=== PATIENT | male | born 1965 | race Caucasian/White ===

== ENCOUNTER 2025-03-07 11:03 | Day surgery (SDC) | payer OTHER ==
[~2025-03-07] VITALS: Ht 182.9 cm; Wt 82.7 kg
[~2025-03-07 11:03] MED LIST: IMIP25
[2025-03-07] MEDS ORDERED: IMITREX100 MG (11:18)
[2025-03-07 11:34] VITALS: BP 125/84
--- NOTE | 2025-03-07 13:29 | NUR ---
03/07/25 1328 Deja Arriaza LATE ENTRY FOR TODAY. PATIENT IS A DIFFICULT IV START, HAS PH IV DRUG USE. 10 IV ATTEMPTS. RN DISCUSSED WITH PATIENT CONTINUING ATTEMPTING TO START AN IV OR CANCELLING HIS PROCEDURE AND RESCHEDULING AT A LATER TIME WHEN THE DRChristoferS OFFICE COULD SCHEDULE HIM AT THE [facility] FOR IV PLACEMENT PRIOR TO COLONOSCOPY. PATIENT OPTED TO RESCHEDULE. PATIENT LEFT [facility] AT 1242.
== END 2025-03-07 12:42 | disposition home or self-care (01) ==
LOC: ORSCSDS 11:03
DX: Z86.0100 Personal history of colon polyps, unspecified (principal); Z53.9 Procedure and treatment not carried out, unspecified reason
CPT/HCPCS: J2704; J7120